=== PATIENT | male | born 1975 | race Two or more races ===

== ENCOUNTER → 2021-08-06 09:10 | Outpatient (CLI) | payer OTHER | END | disposition home or self-care (01) | LOC: LAB 09:02 → EDSTATUS 09:05 → LAB 09:10 | PROVIDERS: ATTEND Internal Medicine | DX: E03.9 Hypothyroidism, unspecified (principal); N39.0 Urinary tract infection, site not specified; E55.9 Vitamin D deficiency, unspecified; D64.9 Anemia, unspecified; E11.69 Type 2 diabetes mellitus with other specified complication; E78.00 Pure hypercholesterolemia, unspecified; E78.5 Hyperlipidemia, unspecified; M17.12 Unilateral primary osteoarthritis, left knee; R16.0 Hepatomegaly, not elsewhere classified ==

== ENCOUNTER 2022-01-26 10:27 | Outpatient (CLI) | payer OTHER | END 2022-01-26 10:34 | disposition home or self-care (01) | LOC: LAB 10:27 | PROVIDERS: ATTEND Internal Medicine | DX: I10 Essential (primary) hypertension (principal); N40.0 Benign prostatic hyperplasia without lower urinary tract symptoms; E53.8 Deficiency of other specified B group vitamins; E61.2 Magnesium deficiency; E11.69 Type 2 diabetes mellitus with other specified complication; D64.9 Anemia, unspecified ==

== ENCOUNTER 2022-06-17 08:48 | Outpatient (CLI) | payer OTHER | END 2022-06-17 08:49 | disposition home or self-care (01) | LOC: LAB 08:48 | PROVIDERS: ATTEND Internal Medicine | DX: I10 Essential (primary) hypertension (principal); E03.8 Other specified hypothyroidism; E78.2 Mixed hyperlipidemia; E78.6 Lipoprotein deficiency; N18.2 Chronic kidney disease, stage 2 (mild); M17.12 Unilateral primary osteoarthritis, left knee; R16.0 Hepatomegaly, not elsewhere classified ==

== ENCOUNTER 2022-11-11 09:19 | Outpatient (CLI) | payer OTHER | END 2022-11-11 09:20 | disposition home or self-care (01) | LOC: LAB 09:19 | PROVIDERS: ATTEND Internal Medicine | DX: E78.5 Hyperlipidemia, unspecified (principal); N18.2 Chronic kidney disease, stage 2 (mild); M17.12 Unilateral primary osteoarthritis, left knee; R16.0 Hepatomegaly, not elsewhere classified; R06.4 Hyperventilation; E53.8 Deficiency of other specified B group vitamins; E55.9 Vitamin D deficiency, unspecified; I10 Essential (primary) hypertension; E03.5 Myxedema coma; D64.9 Anemia, unspecified; E78.2 Mixed hyperlipidemia ==

== ENCOUNTER 2023-03-24 09:11 | Outpatient (CLI) | payer OTHER ==
[2023-03-24 11:00] LABS: ALBUMIN 3.8 gm/dL (3.4-5.0); BILIRUBIN TOTAL 1.4 mg/dL (0.3-1.2); CALCIUM 9.1 mg/dL (8.5-10.1); CHOL HDL RATIO 4.8 (0-5.0); CREATININE SERUM 1.14 mg/dL (0.55-1.02); GFR 50.66; GLOBULINA 3.9 G/DL (2.4-3.5); POTASSIUM 4.11 mEq/L (3.5-5.1); T4 FREE 0.72 NG/ML (0.76-1.46); TOTAL PROTEIN 7.7 gm/dL (6.4-8.2); TSH 0.807 uIU/mL (0.358-3.74)
[2023-03-24 11:06] LABS: HEMATOCRIT 45.1 % (36.0-45.00); HEMOGLOBIN 14.9 g/dL (12.0-15.00); MEAN CELL VOLUME 88.1 fL (80.00-100.00); MEAN CORPUSCULAR HEMOGLOBIN 29.1 pg (27.00-32.0); PLATELET COUNT 259 K/uL (150-450); RED BLOOD COUNT 5.12 M/uL (4.00-6.00); RED CELL DISTRIBUTION WIDTH 12.4 % (11.5-14.5)
== END 2023-03-24 09:12 | disposition home or self-care (01) ==
LOC: LAB 09:11
PROVIDERS: ATTEND Internal Medicine
DX: E78.5 Hyperlipidemia, unspecified (principal); R79.89 Other specified abnormal findings of blood chemistry; N18.2 Chronic kidney disease, stage 2 (mild); M17.12 Unilateral primary osteoarthritis, left knee; R16.0 Hepatomegaly, not elsewhere classified

== ENCOUNTER 2023-07-28 08:56 | Outpatient (CLI) | payer OTHER ==
[2023-07-28 10:29] LABS: URINE APPEARANCE Clear; URINE BILIRRUBIN Negative (NEGATIVE); URINE BLOOD Negative; URINE COLOR Yellow; URINE GLUCOSE Negative (NEGATIVE); URINE LEUKOCYTE Negative; URINE NITRATE Negative; URINE PROTEIN Negative (NEGATIVE)
[2023-07-28 10:32] LABS: HEMATOCRIT 45.4 % (36.0-45.00); HEMOGLOBIN 15.6 g/dL (12.0-15.00); MEAN CELL VOLUME 90.6 fL (80.00-100.00); MEAN CORPUSCULAR HEMOGLOBIN 31.2 pg (27.00-32.0); MEAN CORPUSCULAR HGB CONC 34.4 g/dl (32.0-36.0); PLATELET COUNT 226 K/uL (150-450); RED BLOOD COUNT 5.01 M/uL (4.00-6.00); RED CELL DISTRIBUTION WIDTH 14.1 % (11.5-14.5)
[2023-07-28 10:33] LABS: URINE RBC 2.5 uL (0.0-20.8)
[2023-07-28 10:49] LABS: URINE BACTERIA 0 uL (0.0-1933); URINE EPITHELIAL CELLS 0.4 uL (0.0-38.8); URINE WBC 0.8 uL (0.0-23.2)
[2023-07-28 11:10] LABS: BILIRUBIN TOTAL 1.68 mg/dL (0.3-1.2); CALCIUM 9.1 mg/dL (8.5-10.1); CHOL HDL RATIO 3.7 (0-5.0); CREATININE SERUM 1.13 mg/dL (0.55-1.02); GFR 50.97; GLOBULINA 3.3 G/DL (2.4-3.5); POTASSIUM 4.05 mEq/L (3.5-5.1); T4 FREE 0.61 NG/ML (0.76-1.46); TOTAL PROTEIN 7.3 gm/dL (6.4-8.2); TSH 0.729 uIU/mL (0.358-3.74)
== END 2023-07-28 09:02 | disposition home or self-care (01) ==
LOC: LAB 08:56
PROVIDERS: ATTEND Internal Medicine
DX: E11.69 Type 2 diabetes mellitus with other specified complication (principal); I10 Essential (primary) hypertension; E78.5 Hyperlipidemia, unspecified; R79.89 Other specified abnormal findings of blood chemistry; N18.2 Chronic kidney disease, stage 2 (mild); M17.12 Unilateral primary osteoarthritis, left knee; R16.0 Hepatomegaly, not elsewhere classified; N39.0 Urinary tract infection, site not specified; E78.2 Mixed hyperlipidemia; D64.9 Anemia, unspecified

== ENCOUNTER 2024-01-05 10:12 | Outpatient (CLI) | payer OTHER ==
[2024-01-05 11:17] LABS: HEMATOCRIT 46.4 % (39.0-48.0); HEMOGLOBIN 15.9 g/dL (13-16.00); MEAN CELL VOLUME 90.9 fL (80.0-100.00); MEAN CORPUSCULAR HEMOGLOBIN 31.1 pg (27.00-32.0); MEAN CORPUSCULAR HGB CONC 34.2 g/dl (32.0-36.0); PLATELET COUNT 211 K/uL (150-450); RED CELL DISTRIBUTION WIDTH 12.9 % (11.5-14.5)
[2024-01-05 11:29] LABS: ERYTHROCYTE SEDIMENTATION RATE 2 mm/hr
[2024-01-05 11:42] LABS: ALBUMIN 4.1 gm/dL (3.4-5.0); BILIRUBIN TOTAL 2.68 mg/dL (0.3-1.2); CALCIUM 9.3 mg/dL (8.5-10.1); CHOL HDL RATIO 4.1 (0-5.0); CREATININE SERUM 1.11 mg/dL (0.70-1.30); GFR 70.12; GLOBULINA 3.6 G/DL (2.4-3.5); POTASSIUM 4.2 mEq/L (3.5-5.1); TOTAL PROTEIN 7.7 gm/dL (6.4-8.2)
== END 2024-01-05 10:16 | disposition home or self-care (01) ==
LOC: LAB 10:12
PROVIDERS: ATTEND Internal Medicine
DX: E78.5 Hyperlipidemia, unspecified (principal); N18.5 Chronic kidney disease, stage 5; M17.12 Unilateral primary osteoarthritis, left knee; R16.0 Hepatomegaly, not elsewhere classified; E11.69 Type 2 diabetes mellitus with other specified complication; E11.65 Type 2 diabetes mellitus with hyperglycemia; M06.9 Rheumatoid arthritis, unspecified; A06.4 Amebic liver abscess; E29.1 Testicular hypofunction; M06.4 Inflammatory polyarthropathy